=== PATIENT | male | born 1970 | race Hispanic/Latino ===

== ENCOUNTER 2016-08-11 09:38 | Emergency (ER) | payer OTHER ==
[2016-08-11 09:52] VITALS: BP 137/91; PULSE 76; RESP 17; TEMP 97.7; O2SAT 100; BMI 23.1
--- NOTE | 2016-08-11 10:08 | C.PDOC ---
History Of Present Illness NEW ONSET MASS L NECK X 2 DAYS. PS INCIDENTALLY NOTICED IT THIS MORNING. NO PAIN , DIFFICULTY SWALLOWING, FEVER, CHILLS, WT LOSS, MYALGIA. HO SMOKING, QUIT 5 YRS AGO. DENIES RECENT URI. EXAM NAD HEENT PHARYNX NEG; EYES WNL; +L ANT CERV NODE MID NECK, FIRM APPROX 2-3 CM MOBILE NONTEND. NO OTHER ASSOC NODES ABOVE CLAVICLES NECK SUPPLE, VOICE WNL REMAINDER NEG Time Seen by Provider: 08/11/16 09:53 Chief Complaint (Nursing): Abnormal Skin Integrity History Per: Patient History/Exam Limitations: no limitations Onset/Duration Of Symptoms: Days (2) Current Symptoms Are (Timing): Still Present Recent travel outside of the [place]: No Past Medical History Reviewed: Historical Data, Nursing Documentation, Vital Signs Vital Signs: Last Vital Signs Temp 97.7 F 08/11/16 09:49 Pulse 76 08/11/16 09:49 Resp 17 08/11/16 09:49 BP 137/91 H 08/11/16 09:49 Pulse Ox 100 08/11/16 10:25 - Medical History PMH: Pneumonia Surgical History: Appendectomy Family History: States: Unknown Family Hx - Social History Hx Alcohol Use: No Hx Substance Use: No - Immunization History Hx Tetanus Toxoid Vaccination: Yes Hx Influenza Vaccination: Yes Hx Pneumococcal Vaccination: Yes Review Of Systems Except As Marked, All Systems Reviewed And Found Negative. Constitutional: Negative for: Fever, Chills Respiratory: Negative for: Cough Gastrointestinal: Negative for: Nausea, Vomiting, Abdominal Pain Skin: Positive for: Other (LEFT NECK LUMP). Negative for: Rash Neurological: Negative for: Headache, Dizziness Physical Exam - Physical Exam Appears: Non-toxic, No Acute Distress Skin: Normal Color, Warm, Dry Head: Atraumatic, Normacephalic Oral Mucosa: Moist Throat: Normal, No Erythema, No Exudate Neck: Normal ROM, No Paracervical Tenderness, Supple Lymphatic: Adenopathy (+L ANT CERV NODE MID NECK, FIRM APPROX 2-3 CM MOBILE NONTEND. NO OTHER ASSOC NODES ABOVE CLAVICLES.) Chest: Symmetrical Cardiovascular: Rhythm Regular Respiratory: Normal Breath Sounds, No Rales, No Rhonchi, No Stridor, No Wheezing Neurological/Psych: Oriented x3, Normal Speech, Normal Cognition ED Course And Treatment - Laboratory Results Result Diagrams: 08/11/16 10:08 08/11/16 10:08 O2 Sat by Pulse Oximetry: 100 (RA) Pulse Ox Interpretation: Normal - Radiology CXR: Interpreted by Me CXR Interpretation: Yes: No Acute Disease (improved compared to prior) Progress - Re-Evaluation Re-evaluation Note: 08/11/16 09:54 CxR AND LABS ORDERED, REVIEWED. 08/11/16 10:20 CXR IMPROVED COMPARED W/ PRIOR. PT ADVISED TO F/U WITH PMD. Disposition Counseled Patient/Family Regarding: Studies Performed, Diagnosis, Need For Followup - Disposition Referrals: Clinic,Med Surg [Primary Care Provider] - Production Support Supervisor Service [Outside] YOUR,PMD [Other] Disposition: HOME/ ROUTINE Disposition Time: 10:24 Condition: GOOD Instructions: Lymphadenopathy (ED) - Clinical Impression Clinical Impression: Lymphadenopathy of head and neck - Scribe Statement The provider has reviewed the documentation as recorded by the Max Nina Provider Attestation: All medical record entries made by the Max were at my direction and personally dictated by me. I have reviewed the chart and agree that the record accurately reflects my personal performance of the history, physical exam, medical decision making, and the department course for this patient. I have also personally directed, reviewed, and agree with the discharge instructions and disposition.
[2016-08-11 10:16] LABS: BASO % 0.7 % (0.0-2.0); EOS # 0.1 K/uL (0.0-0.7); EOS % 1.7 % (0.0-4.0); HEMATOCRIT 43.8 % (35.0-51.0); LYMPH # 1.3 K/uL (1.0-4.3); LYMPH % 20.1 % (20.0-40.0); MEAN CELL VOLUME 89.8 fL (80.0-94.0); MEAN CORPUSCULAR HEMOGLOBIN 29.1 pg (27.0-31.0); MEAN CORPUSCULAR HGB CONC 32.4 g/dL (33.0-37.0); MONO # 0.6 K/uL (0.0-0.8); MONO % 9.6 % (0.0-10.0); RED CELL DISTRIBUTION WIDTH 13.4 % (11.5-14.5); WHITE BLOOD COUNT 6.6 K/uL (4.8-10.8)
[2016-08-11 10:38] LABS: CHLORIDE 100 mmol/L (98-107); POTASSIUM 4.5 mmol/L (3.6-5.2); SODIUM 140 mmol/L (132-148)
[2016-08-11 10:41] LABS: CARBON DIOXIDE 26 mmol/L (22-30); GFR AFRICAN-AMERICAN > 60
[2016-08-11 10:42] LABS: BLOOD UREA NITROGEN 15 mg/dL (9-20); CALCIUM 9.1 mg/dl (8.6-10.4); GLUCOSE,RANDOM 94 mg/dL (75-110)
--- NOTE | 2016-08-11 11:35 | RAD ---
HISTORY: lymphadenopathy COMPARISON: Chest x-ray performed 05/31/16 TECHNIQUE: Chest PA and lateral FINDINGS: LUNGS: Minimal infiltrate/opacity within the medial right lower lobe, improved since prior study. Please note that chest x-ray has limited sensitivity for the detection of pulmonary masses. PLEURA: No significant pleural effusion identified. No definite pneumothorax . CARDIOVASCULAR: The cardiomediastinal silhouette appears within normal limits of size. OSSEOUS STRUCTURES: Evidence of prior vertebroplasty involving 3 vertebral bodies. VISUALIZED UPPER ABDOMEN: Unremarkable. OTHER FINDINGS: None. IMPRESSION: Minimal infiltrate/opacity persists within the medial right lower lobe, overall improved since prior study.
== END 2016-08-11 10:28 | disposition home or self-care (01) ==
LOC: SUPCPDRO 09:38 → C.ER 09:38
DX: R59.0 Localized enlarged lymph nodes (principal)

== ENCOUNTER 2017-04-24 16:38 | Emergency (ER) | payer OTHER ==
[2017-04-24 16:38] VITALS: BMI 23.1
[2017-04-24 16:51] VITALS: BP 129/86; PULSE 76; RESP 17; TEMP 98.1; O2SAT 98
[2017-04-24] MEDS ORDERED: Bacitracin 500 Units/gm Oint Foilpak UD TOP ONE (16:55)
[2017-04-24] MEDS ORDERED: Bacitracin 500 Units/gm Oint Foilpak UD ONE (17:01)
--- NOTE | 2017-04-24 17:05 | C.PDOC ---
History Of Present Illness Mehul Patel is a 47 y/o male who presents to the ER for evaluation of an abrasion sustained to right finger 20 minutes ago. The abrasion was sustained when patient was utilizing a wheelchair lock. Tetanus not up to date. Patient denies having pain at the site. He washed and irrigated wound prior to arrival. PMD: Kirby George Time Seen by Provider: 04/24/17 16:55 Chief Complaint (Nursing): Abnormal Skin Integrity History Per: Patient History/Exam Limitations: no limitations Onset/Duration Of Symptoms: Mins (x20) Current Symptoms Are (Timing): Still Present Past Medical History Reviewed: Historical Data, Nursing Documentation, Vital Signs Vital Signs: Last Vital Signs Temp 98.1 F 04/24/17 16:48 Pulse 76 04/24/17 16:48 Resp 17 04/24/17 16:48 BP 129/86 04/24/17 16:48 Pulse Ox 98 04/24/17 17:12 - Medical History PMH: Pneumonia, Seizures (EPILEPSY) Denies: Chronic Kidney Disease Surgical History: Appendectomy Family History: States: Unknown Family Hx - Social History Hx Alcohol Use: Yes Hx Substance Use: No - Immunization History Hx Tetanus Toxoid Vaccination: Yes Hx Influenza Vaccination: Yes Hx Pneumococcal Vaccination: No Review Of Systems Constitutional: Negative for: Fever, Chills Skin: Positive for: Lesions (abrasion to right 2nd digit). Negative for: Other (Pain) Physical Exam - Physical Exam Appears: Non-toxic, No Acute Distress Skin: Normal Color, Other (3 mm shallow cut to the right 2nd MCP, from wheelchair) Neurological/Psych: Oriented x3, Normal Speech, Normal Motor, Normal Sensation ED Course And Treatment O2 Sat by Pulse Oximetry: 98 (RA) Pulse Ox Interpretation: Normal Medical Decision Making Medical Decision Making: Impression: 47 y/o male with abrasion to right 2nd digit Tetanus vaccine given. Bacitracin applied to wound. Wound care instructions given. Pt is to continue applying ointment to wound and follow up as needed with PMD. Disposition Counseled Patient/Family Regarding: Diagnosis, Need For Followup - Disposition Disposition: HOME/ ROUTINE Disposition Time: 17:05 Condition: STABLE Additional Instructions: Keep clean and dry, Apply antibiotic ointment 1-2 times a day. Return to ER for any signs of infection. 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 - Scribe Statement The provider has reviewed the documentation as recorded by the Scribe (Kristen Dhillon) All medical record entries made by the Scribe were at my direction and personally dictated by me. I have reviewed the chart and agree that the record accurately reflects my personal performance of the history, physical exam, medical decision making, and the department course for this patient. I have also personally directed, reviewed, and agree with the discharge instructions and disposition.
== END 2017-04-24 17:35 | disposition home or self-care (01) ==
LOC: C.ER 16:38
DX: S60.511A Abrasion of right hand, initial encounter (principal); X58.XXXA Exposure to other specified factors, initial encounter; Z23 Encounter for immunization

== ENCOUNTER 2017-07-01 06:39 | Emergency (ER) | payer OTHER ==
[2017-07-01 06:39] VITALS: BMI 23.1
[2017-07-01] MEDS ORDERED: Amoxicillin-Clav 875-125 mg Tab PO STA (07:31)
--- NOTE | 2017-07-01 07:48 | C.PDOC ---
History Of Present Illness 47-year-old male, presents to the emergency department with complaints of pain in left ear that started yesterday, while he was on a flight that was landing. Patient notes pain is constant in nature, and associated with muffled hearing. He denies nausea/vomiting. No fever. Time Seen by Provider: 07/01/17 07:20 Chief Complaint (Nursing): ENT Problem History Per: Patient History/Exam Limitations: None Onset/Duration Of Symptoms: Hrs Past Medical History Reviewed: Historical Data, Nursing Documentation, Vital Signs Vital Signs: Last Vital Signs Temp 98.0 F 07/01/17 08:11 Pulse 60 07/01/17 08:20 Resp 17 07/01/17 08:20 BP 122/73 07/01/17 08:11 Pulse Ox 99 07/01/17 08:48 - Medical History PMH: Pneumonia, Seizures (EPILEPSY) Surgical History: Appendectomy Family History: States: No Known Family Hx - Social History Hx Alcohol Use: Yes Hx Substance Use: No - Immunization History Hx Tetanus Toxoid Vaccination: Yes (2017) Hx Influenza Vaccination: Yes Hx Pneumococcal Vaccination: No Review Of Systems Constitutional: Negative for: Fever ENT: Positive for: Ear Pain. Negative for: Ear Discharge, Nose Congestion, Throat Pain, Throat Swelling Respiratory: Negative for: Cough Physical Exam - Physical Exam Appears: Well, Non-toxic, No Acute Distress Skin: Normal Color, Warm, Dry, No Rash Head: Normacephalic Eye(s): bilateral: PERRL Ear(s): Left: Other (Left TM bulging and erythematous) Nose: Normal Oral Mucosa: Moist ED Course And Treatment O2 Sat by Pulse Oximetry: 99 (RA) Pulse Ox Interpretation: Normal Progress Note: Patient will be discharged w Rx for abx and outpatient f/u with PMD or clinic in 1-2 days Disposition - Disposition Referrals: Non [facility] Provider, [Primary Care Provider] - Disposition: HOME/ ROUTINE Disposition Time: 07:32 Condition: STABLE Additional Instructions: Follow up with PMD within 1-2 days. Return to ED if feel worse. Prescriptions: Amoxicillin/Clavulanate [Augmentin 875 MG-125 MG] 1 tab PO BID #20 tab Fluticasone Nasal [Flonase] 1 spr NS BID #1 spr Famotidine [Pepcid] 20 mg PO BID #20 tab Pseudoephedrine HCl [Sudafed 12-Hour] 120 mg PO Q12 #10 tablet.er Instructions: Ear Infections (Otitis Media) Forms: [facility] (Congolese), Work Excuse - Clinical Impression Clinical Impression: Otitis media - Scribe Statement The provider has reviewed the documentation as recorded by the Scribe (Rebecca Seo) All medical record entries made by the Scribe were at my direction and personally dictated by me. I have reviewed the chart and agree that the record accurately reflects my personal performance of the history, physical exam, medical decision making, and the department course for this patient. I have also personally directed, reviewed, and agree with the discharge instructions and disposition.
[2017-07-01] MEDS ORDERED: Amoxicillin-Clav 875-125 mg Tab PO ONE (07:51)
[2017-07-01 08:13] VITALS: BP 122/73; TEMP 98
[2017-07-01 08:22] VITALS: PULSE 60; RESP 17
[2017-07-01 08:48] VITALS: O2SAT 99
== END 2017-07-01 08:21 | disposition home or self-care (01) ==
LOC: C.ER 06:39 → SUPCPDRO 06:39 → C.ER 08:21
DX: H66.92 Otitis media, unspecified, left ear (principal)

== ENCOUNTER 2017-09-08 07:43 | Day surgery (SDC) | payer OTHER ==
--- NOTE | 2017-09-08 09:22 | CP.SDSHP ---
Same Day Surgery H & P - History Proposed Procedure: EGD, colonoscopy Pre-Op Diagnosis: abdominal pain, change in bowel habits - Allergies Allergies: Allergies No Known Allergies Allergy (Verified 07/01/17 06:49) - Physical Exam General Appearance: NAD Vital Signs: Vital Signs 09/08/17 08:19 Temperature 98 F Pulse Rate 57 L Respiratory 20 Rate Blood Pressure 124/71 O2 Sat by Pulse 99 Oximetry Mental Status: Alert & Oriented x3 Neuro: WNL Heart: WNL Lungs: WNL GI: WNL - {Optional Preform as Required} Abdomen: WNL - Impression Pt. Evaluated Today:Candidate for Anesthesia & Procedure: Yes - Date & Time Date: 09/08/17 Time: 09:22 Short Stay Discharge - Short Stay Discharge Admitting Diagnosis/Reason for Visit: ABDOMINAL PAIN / CHANGE IN BOWEL HABITS Disposition: HOME/ ROUTINE
[2017-09-08] MEDS ORDERED: Propofol 10 mg/ml Inj (20 ML) ONE ×2 (09:24→09:48)
[2017-09-08] MEDS ORDERED: Lactated Ringer's 1,000 ML IV ONE (09:25)
[2017-09-08 10:17] VITALS: TEMP 97.8
[2017-09-08 10:27] VITALS: O2SAT 100
[2017-09-08 11:08] VITALS: BP 108/77; PULSE 66; RESP 18
== END 2017-09-08 11:20 | disposition home or self-care (01) ==
LOC: C.ENDO 07:43
PROVIDERS: ATTEND Internal Medicine Gastroenterology
DX: K31.7 Polyp of stomach and duodenum (principal); R10.13 Epigastric pain; R19.4 Change in bowel habit; K64.8 Other hemorrhoids
CPT/HCPCS: 43270; 45380; 88305; 88313; 88342; J2001; J2704; J7120

== ENCOUNTER 2018-05-19 14:27 | Outpatient (CLI) | payer OTHER | END 2018-05-19 14:28 | disposition home or self-care (01) | LOC: C.LAB 14:27 | DX: R19.8 Other specified symptoms and signs involving the digestive system and abdomen (principal); T78.1XXA Other adverse food reactions, not elsewhere classified, initial encounter; Z87.891 Personal history of nicotine dependence; Z78.9 Other specified health status ==

== ENCOUNTER 2018-06-11 09:19 | Emergency (ER) | payer OTHER ==
[2018-06-11 09:19] VITALS: BMI 23.1
[2018-06-11 09:32] VITALS: BP 135/89; PULSE 72; RESP 17; TEMP 97.7; O2SAT 100
--- NOTE | 2018-06-11 10:10 | C.PDOC ---
History Of Present Illness 48 y/o male pt with hx of pneumonia presents to the ER c/o cough and congestion for a couple of days. Pt is concerned about his sx because of his PMHx. Pt denies fever, chills, abdominal pain, nausea, vomiting, SOB and chest pain. Time Seen by Provider: 06/11/18 09:23 Chief Complaint (Nursing): Cough, Cold, Congestion History Per: Patient History/Exam Limitations: no limitations Onset/Duration Of Symptoms: Days Current Symptoms Are (Timing): Still Present Past Medical History Reviewed: Historical Data, Nursing Documentation, Vital Signs Vital Signs: Last Vital Signs Temp 97.7 F 06/11/18 09:21 Pulse 72 06/11/18 09:21 Resp 17 06/11/18 09:21 BP 135/89 06/11/18 09:21 Pulse Ox 100 06/11/18 09:21 - Medical History PMH: Fractures (FRACTURE SPINE ), Kidney Stones, Osteoporosis (OSTEOPENIA), Pneumonia, Chronic Kidney Disease, Seizures (EPILEPSY) Surgical History: Appendectomy (1985) Family History: States: Unknown Family Hx - Social History Hx Alcohol Use: Yes Hx Substance Use: No - Immunization History Hx Tetanus Toxoid Vaccination: Yes (2016) Hx Influenza Vaccination: Yes Hx Pneumococcal Vaccination: No Review Of Systems Except As Marked, All Systems Reviewed And Found Negative. Constitutional: Positive for: Other (congestion ). Negative for: Fever, Chills Cardiovascular: Negative for: Chest Pain Respiratory: Positive for: Cough. Negative for: Shortness of Breath Gastrointestinal: Negative for: Nausea, Vomiting, Abdominal Pain Physical Exam - Physical Exam Appears: Well, Non-toxic, No Acute Distress Skin: Warm, Dry Head: Normacephalic Ear(s): Bilateral: Normal Nose: Normal Oral Mucosa: Moist Throat: Normal, No Erythema, No Exudate Neck: Normal ROM, Supple Cardiovascular: Rhythm Regular Respiratory: Normal Breath Sounds, No Rales, No Rhonchi, No Wheezing Gastrointestinal/Abdominal: Soft, No Tenderness Neurological/Psych: Oriented x3, Normal Speech ED Course And Treatment O2 Sat by Pulse Oximetry: 100 (RA) Pulse Ox Interpretation: Normal - Other Rad chest X-Ray: Read By Radiologist Interpretation: Accession No. : [id number]. Patient Name / ID : CIRO JIMÉNEZ / [id number]. Exam Date : 06/11/2018 09:31:46 ( Approved ). Study Comment : Sex / Age : M / 48Y. Creator : Nathan Parikh MD. Dictator : Nathan Parikh MD. Kettle Coordinator : Heel Cementer Machine : Nathan Parikh MD. Approver2 : Report Date : 06/11/2018 10:25:36. My Comment : . Date of service: 06/11/2018. HISTORY: cough. COMPARISON: Chest radiographs 08/11/2016. TECHNIQUE: Chest PA and lateral. FINDINGS: LUNGS: No active pulmonary disease. PLEURA: No significant pleural effusion identified. No pneumothorax apparent. CARDIOVASCULAR: No aortic atherosclerotic calcification present. Normal cardiac size. No pulmonary vascular congestion. OSSEOUS STRUCTURES: Minimal scoliotic deformity upper thoracic spine reiterated with kyphoplasty identified at multiple mid thoracic vertebral bodies once again as well. VISUALIZED UPPER ABDOMEN: Normal. OTHER FINDINGS: None. IMPRESSION: No interval acute cardiopulmonary disease appreciated. Progress Note: Plans: -- CXR. CXR results: (-) negative; more info under radiology section. -- Pt given abx prescription. Reassess: On reassessment, patient is resting comfortably, and is in no acute distress. CXR results was discussed with patient. Patient was given antibiotics and was instructed to follow up with physician/clinic in 1-2 days for further evaluation. Disposition - Disposition Disposition: HOME/ ROUTINE Disposition Time: 10:09 Condition: STABLE Additional Instructions: Follow up with PMD within 1-2 days. Return to ED if feel worse. 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 - Scribe Statement The provider has reviewed the documentation as recorded by the Max Jarrett Do All medical record entries made by the Scribe were at my direction and personally dictated by me. I have reviewed the chart and agree that the record accurately reflects my personal performance of the history, physical exam, medical decision making, and the department course for this patient. I have also personally directed, reviewed, and agree with the discharge instructions and disposition.
--- NOTE | 2018-06-11 10:29 | RAD ---
Date of service: 06/11/2018 HISTORY: cough COMPARISON: Chest radiographs 08/11/2016. TECHNIQUE: Chest PA and lateral FINDINGS: LUNGS: No active pulmonary disease. PLEURA: No significant pleural effusion identified. No pneumothorax apparent. CARDIOVASCULAR: No aortic atherosclerotic calcification present. Normal cardiac size. No pulmonary vascular congestion. OSSEOUS STRUCTURES: Minimal scoliotic deformity upper thoracic spine reiterated with kyphoplasty identified at multiple mid thoracic vertebral bodies once again as well. VISUALIZED UPPER ABDOMEN: Normal. OTHER FINDINGS: None. IMPRESSION: No interval acute cardiopulmonary disease appreciated.
== END 2018-06-11 10:14 | disposition home or self-care (01) ==
LOC: C.ER 09:19
DX: J40 Bronchitis, not specified as acute or chronic (principal); N18.9 Chronic kidney disease, unspecified; G40.909 Epilepsy, unspecified, not intractable, without status epilepticus

== ENCOUNTER 2018-06-22 09:42 | Outpatient (CLI) | payer OTHER | END 2018-06-22 09:43 | disposition home or self-care (01) | LOC: C.DEXAIC 09:42 ==